=== PATIENT | female | born 1995 | race Caucasian/White ===

== ENCOUNTER 2021-08-08 06:18 | Emergency (ER) | payer SELFPAY ==
[2021-08-08] MEDS ORDERED: ALBUTEROL 2.5 MG/3 ML NEBU IH ONE (06:26)
[2021-08-08] MEDS ORDERED: methylPREDNISolone Sod Succinate 125 MG/2 ML INJ IM ONE (06:26)
[2021-08-08] MEDS ORDERED: IPRATROPIUM 0.02% NEBU 2.5 ML IH ONE (06:26)
--- NOTE | 2021-08-08 06:40 | Emergency Department Report ---
HPI - General Chief Complaint: Dyspnea/Respdistress Time Seen by Provider: 08/08/21 06:33 - HPI HPI: Since last night the patient has been experiencing some moderate shortness of breath associated with wheezing. She has used her albuterol metered-dose inh aler several times and does not feel any better. She denies nausea vomiting fever chills chest pain or any other associated symptoms. Exertion makes it worse and nothing makes it better. ED Past Medical Hx - Past Medical History Hx Asthma: Yes - Surgical History Past Surgical History?: No - Family History Family history: no significant - Social History Smoking Status: Never Smoker Substance Use Type: None - Medications Home Medications: Home Medications Medication Instructions Recorded Confirmed Last Taken Type Albuterol Sulfate [Proair 90 mcg IH Q6H PRN 10 Days #1 08/08/21 Unknown Rx Digihaler] predniSONE [Deltasone] 50 mg PO QDAY 5 Days #5 tab 08/08/21 Unknown Rx ED Review of Systems ROS: Stated complaint: SOB Other details as noted in HPI Comment: All other systems reviewed and negative Physical Exam - Physical Exam Vital Signs: Vital Signs 08/08/21 06:18 Temperature 98.7 F Pulse Rate 125 H Respiratory 28 H Rate Blood Pressure 116/70 O2 Sat by Pulse 100 Oximetry Physical Exam: Physical Exam Constitutional: General: No acute distress. Appearance: No diaphoresis. HENT: Head: Normocephalic. Eyes: Pupils: Pupils are equal, round, and reactive to light. Neck: Musculoskeletal: Normal range of motion. Cardiovascular: Rate and Rhythm: Normal rate and regular rhythm. Pulses: Intact distal pulses. Heart sounds: Normal heart sounds. No murmur. Pulmonary: Effort: Mild respiratory distress. Breath sounds: No wheezing or rales. The patient has prolonged expiratory phase. Chest: Chest wall: No tenderness. Abdominal: General: There is no distension. Palpations: There is no mass. Tenderness: There is no abdominal tenderness. There is no guarding or rebound. Musculoskeletal: Normal range of motion. Skin: General: Skin is warm and dry. Neurological: Mental Status: Alert and oriented to person, place, and time. Psychiatric: Mood and Affect: Mood and affect normal. Cognition and Memory: Memory normal. Judgment: Judgment normal. ED Course Vital Signs 08/08/21 06:18 Temperature 98.7 F Pulse Rate 125 H Respiratory 28 H Rate Blood Pressure 116/70 O2 Sat by Pulse 100 Oximetry - Reevaluation(s) Reevaluation #1: 08/08/21 08:41 The patient felt better after the nebulizer we gave her. We will discharge her on a albuterol MDI and some steroids. Critical care attestation.: If time is entered above; I have spent that time in minutes in the direct care of this critically ill patient, excluding procedure time. ED Disposition Clinical Impression: Asthma Disposition: 01 HOME / SELF CARE / HOMELESS Is pt being admited?: No Does the pt Need Aspirin: No Condition: Stable Instructions: Asthma (ED), Asthma, Adult Prescriptions: predniSONE [Deltasone] 50 mg PO QDAY 5 Days #5 tab Albuterol Sulfate [Proair Digihaler] 90 mcg IH Q6H PRN 10 Days #1 PRN Reason: Shortness Of Breath Referrals: HAILEE REYNOLDS MD [Primary Care Provider] - 3-5 Days Time of Disposition: 08:45 Print Language: WOLOF
--- NOTE | 2021-08-08 06:50 | XRay Report ---
CHEST 1 VIEW INDICATION / CLINICAL INFORMATION: dyspnea, asthma. FINDINGS: SUPPORT DEVICES: None. HEART / MEDIASTINUM: No significant abnormality. LUNGS / PLEURA: No significant pulmonary or pleural abnormality. No pneumothorax. ADDITIONAL FINDINGS: No significant additional findings. IMPRESSION: 1. No acute findings. Signer Name: Remy Isaac MD Signed: 08/08/2021 6:46 AM Workstation Name: [email or web address]
[2021-08-08 08:54] VITALS: BP 110/69
== END 2021-08-08 08:53 | disposition home or self-care (01) ==
LOC: ED 06:18
DX: J45.909 Unspecified asthma, uncomplicated (principal); Z79.899 Other long term (current) drug therapy
CPT/HCPCS: 71045; 94640; 96372; 99283; J2930; 94644